=== PATIENT | female | born 1950 | race American Indian/Alaskan Native ===

== ENCOUNTER 2016-07-26 20:42 | Inpatient (IN) | payer OTHER ==
[2016-07-26 20:43] VITALS: BMI 27.8
[2016-07-26] MEDS ORDERED: Sodium Chloride 0.9% 1,000 ML IV ONE (21:21)
--- NOTE | 2016-07-26 21:24 | C.PDOC ---
History Of Present Illness Patient is a 66 year old female sent to the ER by Dr. Tapia for an evaluation. Patient reports she has felt lightheadedness and dizziness for the past 2 weeks and notes 1 syncopal episode. Denies nausea or vomiting. Time Seen by Provider: 07/26/16 21:20 Chief Complaint (Nursing): Dizziness/Lightheaded History Per: Patient History/Exam Limitations: no limitations Onset/Duration Of Symptoms: Hrs Current Symptoms Are (Timing): Still Present Number Of Syncopal Episodes: 1 Activity At Onset Of Symptoms: Other (Not known) Associated Symptoms Preceding Syncopal Episode: Lightheadedness, Other ( Dizziness) Fall Associated With With Symptoms: No Recent travel outside of the [place]: No - Symptoms Of CVA Associated Symptoms: denies: Impaired Speech, Seizure Activity, New Vision Deficit(Left), New Vision Deficit(Right), Decreased Ability To Walk, New Confusion Recent Aspirin Use: Unknown Current Coumadin Use?: Unknown Recent Head Trauma: No Past Medical History Reviewed: Historical Data, Nursing Documentation, Vital Signs Vital Signs: Last Vital Signs Temp 97.9 F 07/27/16 00:53 Pulse 61 07/27/16 00:53 Resp 20 07/27/16 00:53 BP 144/64 07/27/16 00:53 Pulse Ox 98 07/27/16 05:12 - Medical History PMH: HTN Other Surgeries: See [facility] Procedures - [facility] Procedures CATARAC PHACOEMULS/ASPIR (12/08/12) INSERT LENS AT CATAR EXT (12/08/12) Family History: States: Unknown Family Hx - Social History Hx Alcohol Use: No Hx Substance Use: No - Immunization History Hx Tetanus Toxoid Vaccination: No Hx Influenza Vaccination: No Hx Pneumococcal Vaccination: No Review Of Systems Gastrointestinal: Negative for: Nausea, Vomiting Neurological: Positive for: Dizziness, Other (Lightheadedness) Physical Exam - Physical Exam Appears: Well, Non-toxic, No Acute Distress, Other (Alert and conscious) Skin: Normal Color, Warm, Dry Head: Atraumatic, Normacephalic Eye(s): bilateral: Normal Inspection, EOMI Oral Mucosa: Moist Chest: Symmetrical, No Tenderness Cardiovascular: Rhythm Regular, No Murmur Respiratory: Normal Breath Sounds, No Rales, No Rhonchi, No Wheezing Gastrointestinal/Abdominal: Soft, No Tenderness Neurological/Psych: Oriented x3, Normal Speech, Normal Cognition ED Course And Treatment - Laboratory Results Result Diagrams: 07/26/16 21:47 07/26/16 21:47 ECG: Interpreted By Me, Viewed By Me ECG Rhythm: Sinus Rhythm ECG Interpretation: Normal Interpretation Of ECG: NSR, normal tracings. Rate From EC O2 Sat by Pulse Oximetry: 98 (room air) Pulse Ox Interpretation: Normal - CT Scan/US CT head w/o contrast Other Rad Studies (CT/US): Read By Radiologist, Radiology Report Reviewed CT/US Interpretation: IMPRESSION: No acute intracranial abnormality. Progress Note: Head CT w/o contrast, EKG and blood work ordered. Antivert PO and IV fluids administered. NIHSS Stroke Scale - Date/Time Evaluation Performed Date Performed: 07/26/16 Time Performed: 21:41 When Was NIHSS Performed: Baseline - How Severe is the Stoke Level of Consciousness: 0=Alert LOC to Questions: 0=Both comments correct LOC to commands: 0=Obeys both correctly Best Gaze: 0=Normal Visual: 0=No visual loss Facial: 0=Normal Motor Arm - Left: 0=No drift Motor Arm - Right: 0=No drift Motor Leg - Left: 0=No drift Motor Leg - Right: 0=No drift Limb Ataxia: 0=Absent Sensory: 0=Normal Best Language: 0=No aphasia Dysarthia: 0=Normal articulation Extinction & Inattention (Neglect): 0=Normal, no object Score: 0 Severity Of Stroke: 0= No Stroke Disposition Discussed With : Faisal Tapia Doctor Will See Patient In The: Hospital Counseled Patient/Family Regarding: Diagnosis - Disposition Disposition: HOSPITALIZED Disposition Time: 22:51 Condition: STABLE - POA Present On Arrival: None - Clinical Impression Clinical Impression: Dizziness, Near syncope, Renal insufficiency - Scribe Statement The provider has reviewed the documentation as recorded by the Scribjosefa Dillon All medical record entries made by the Scribe were at my direction and personally dictated by me. I have reviewed the chart and agree that the record accurately reflects my personal performance of the history, physical exam, medical decision making, and the department course for this patient. I have also personally directed, reviewed, and agree with the discharge instructions and disposition.
[2016-07-26] MEDS ORDERED: Sodium Chloride 0.9% 1,000 ML ONE (21:47)
[2016-07-26 22:01] LABS: BASO # 0.1 K/uL (0.0-0.2); BASO % 0.7 % (0.0-2.0); EOS # 0.1 K/uL (0.0-0.7); EOS % 0.9 % (0.0-4.0); LYMPH % 36.1 % (20.0-40.0); MEAN CELL VOLUME 92.5 fL (81.0-99.0); MEAN CORPUSCULAR HEMOGLOBIN 30.4 pg (27.0-31.0); MEAN CORPUSCULAR HGB CONC 32.9 g/dL (33.0-37.0); MEAN PLATELET VOLUME 10.4 fL (7.2-11.7); MONO # 0.6 K/uL (0.0-0.8); POTASSIUM 4.8 mmol/L (3.6-5.2); RED CELL DISTRIBUTION WIDTH 13.4 % (11.5-14.5); WHITE BLOOD COUNT 11.1 K/uL (4.8-10.8)
[2016-07-26 22:02] LABS: ALB/GLOB RATIO 1.2 (1.0-2.1); BILIRUBIN,TOTAL 0.9 mg/dL (0.2-1.3); TOTAL PROTEIN 8.7 g/dL (6.3-8.3)
[2016-07-26 22:03] LABS: CALCIUM 9.7 mg/dl (8.6-10.4)
[2016-07-27] MEDS ORDERED: (Novolog) Insulin Aspart, Recombinant 100 u/ml 10 ml vial SC SCH (10:00)
--- NOTE | 2016-07-27 11:08 | CT ---
PROCEDURE: CT HEAD WITHOUT CONTRAST. HISTORY: Headache COMPARISON: None available. TECHNIQUE: Axial computed tomography images were obtained through the head/brain without intravenous contrast. Radiation dose: Total exam DLP = 857.21 mGy-cm. This CT exam was performed using one or more of the following dose reduction techniques: Automated exposure control, adjustment of the mA and/or kV according to patient size, and/or use of iterative reconstruction technique. FINDINGS: HEMORRHAGE: No intracranial hemorrhage. BRAIN: No mass effect or edema. No atrophy or chronic microvascular ischemic changes. VENTRICLES: Unremarkable. No hydrocephalus. CALVARIUM: Unremarkable. PARANASAL SINUSES: Unremarkable as visualized. No significant inflammatory changes. MASTOID AIR CELLS: Unremarkable as visualized. No inflammatory changes. OTHER FINDINGS: None. IMPRESSION: No acute intracranial abnormalities. No significant findings to account for the clinical presentation. Concordant results (preliminary interpretation) provided by [facility]. Procedure Completed: 22:29. Preliminary ([facility]) Report: Dictated and Authenticated: 22:45. Final Interpretation: 11:07. July 27, 2016.
[2016-07-27] MEDS: (Novolog) Insulin Aspart, Recombinant 100 u/ml 10 ml vial SC SCH ×3 (13:16→22:01)
--- NOTE | 2016-07-27 18:06 | HP ---
The patient is a 66-year-old female with history of diabetes, hypertension and depression. The patie nt came to my office, complaining of dizziness and shortness of breath on exertion. Also, patient st ated that she has lost consciousness while a week ago, but the patient has claimed that she was in he r car, did not remember when she started her car, but she was found with her head leaning over the wh eel and the car was running. The patient at this time had refused to come to the [facility] the patient continued to have dizziness and the family has advised the patient to come to see me because of dizziness and patient was admitted. ALLERGIES: The patient has no known allergies. PAST MEDICAL HISTORY: As I mentioned, history of diabetes, hypertension, depression. SOCIAL HISTORY: The patient and are with no history of smoking or alcohol abuse. FAMILY HISTORY: No inherited disease. REVIEW OF SYSTEMS: RESPIRATORY: Shortness of breath on exertion. CARDIOVASCULAR: Denies any chest pain, however the patient has been having some palpitations at time s. GASTROINTESTINAL: No nausea, vomiting and no constipation. GENITOURINARY: No dysuria. NEUROLOGIC: The patient is awake. PHYSICAL EXAMINATION: GENERAL: The patient is alert, awake, oriented x 3, but with seems depressed. VITAL SIGNS: The blood pressure is 144/76, pulse 61, respirations 20, temperature 97.5. HEENT: Head normocephalic. NECK: Supple. No JVD. LUNGS: Clear. HEART: Regular rate and rhythm. Positive extrasystole. ABDOMEN: Soft and nontender. No palpable mass. EXTREMITIES: There is +1 pretibial edema. NEUROLOGIC: The patient has no ___ deficit. LABORATORY DATA: The patient had some blood tests done. WBC is 11.1, hemoglobin 12.5, hematocrit 38 and platelet is 206. Chemistry: Sodium 140, potassium ____, chloride 1.1, bicarbonate 26, BUN 31, creatinine 1.3, glucose 150, albumin is 4.8. The patient also had CT of the head. CT of the head showed no intracranial hemorrhage and no mass. IMPRESSION: So patient is admitted with syncope, diabetes, hypertension, peripheral neuropathy and de pression. The patient had a consult with Dr. Montoya cardiology for ____ and Dr. Montoya ____ e ndocrinologist. The case was reviewed and discussed with Danay GUILLORY, the nurse practitioner . . Faisal Tapia MD cc: [id number] TT: 07/27/2016 18:06:13 cecy
[2016-07-27 19:51] LABS: BASO % 0.5 % (0.0-2.0); EOS # 0.1 K/uL (0.0-0.7); EOS % 1.2 % (0.0-4.0); HEMATOCRIT 36.7 % (34.0-47.0); LYMPH # 3.7 K/uL (1.0-4.3); LYMPH % 49.9 % (20.0-40.0); MEAN CELL VOLUME 92.1 fL (81.0-99.0); MEAN CORPUSCULAR HGB CONC 33.7 g/dL (33.0-37.0); MEAN PLATELET VOLUME 9.6 fL (7.2-11.7); MONO # 0.4 K/uL (0.0-0.8); NRBC % 0.1 % (0.0-2.0); RED CELL DISTRIBUTION WIDTH 13.2 % (11.5-14.5); WHITE BLOOD COUNT 7.4 K/uL (4.8-10.8)
[2016-07-27 19:59] LABS: ALB/GLOB RATIO 1.5 (1.0-2.1); BILIRUBIN,TOTAL 0.5 mg/dL (0.2-1.3); CALCIUM 9.5 mg/dl (8.6-10.4); TOTAL PROTEIN 7.8 g/dL (6.3-8.3)
--- NOTE | 2016-07-27 20:17 | CON ---
DATE: 07/27/2016 REASON FOR CONSULTATION: Recurrent dizziness and near syncope. HISTORY OF PRESENT ILLNESS: The patient is a 66-year-old, [place] female originally from [facility] who has a history of hypertension and diabetes mellitus. The patient has a history of co ronary artery disease status post coronary stenting in [place] in 2004. The patient presented bec ause of recurrent dizziness and near fall. The last time the patient stated that she grabbed to her son's fina to protect herself from falling. The patient does not recall experiencing palpitations a nd denies any chest pain. One syncopal episode was reported to the primary physician, Dr. Tapia. However, the patient does not recall it. SOCIAL HISTORY: Nonsmoker, nondrinker. MEDICATIONS: Coreg 12.5 mg daily, Crestor 20 mg once a day, glipizide 5 mg daily, Lasix 20 mg p.o. o nce a day, Norvasc 5 mg once a day, Tylenol 1 tablet q. 6 hours p.r.n. REVIEW OF SYSTEMS: No nausea or vomiting. No fever or chills. No headache. PAST MEDICAL HISTORY: Hypertension, diabetes mellitus, chronic renal insufficiency, coronary artery disease status post coronary stenting in 2004. PHYSICAL EXAMINATION: GENERAL: The patient is a middle-aged female who does not appear to be in any distress. VITAL SIGNS: Blood pressure 130/64, heart rate 65, temperature 97.4, respirations 20. HEENT: Normocephalic. NECK: No JVD. CHEST: Clear. HEART: S1, S2 regular. EXTREMITIES: No edema, no calf tenderness. EKG reveals sinus rhythm at a rate of 75. LABORATORY DATA: SMA-7: Sodium 140, potassium 4.8, chloride 101, CO2 of 26, glucose 150, BUN 34, cr eatinine 1.3. CBC: WBC 11.1, hemoglobin 12.5, hematocrit 38, platelet count 206,000. Head CT scan without contrast revealed no acute intracranial abnormality. ASSESSMENT: 1. Recurrent dizziness and falls. 2. Coronary artery disease status post coronary intervention in 2004 according to the patient at [facility]. 3. Hypertension and diabetes mellitus. 4. Chronic renal insufficiency. RECOMMENDATIONS: Continue current Coreg at 12.5 mg daily, Crestor 20 mg once a day, Glucotrol 5 mg o nce a day, Norvasc 5 mg once a day, Lasix at 20 mg once a day. Start aspirin at 81 mg once a day. I will follow up the carotid Doppler results and the echocardiograph study that was performed today. Continue telemetry monitoring. Kaden Montoya MD cc: [id number] TT: 07/27/2016 20:16:17 Confirmation # [id number] Dictation # [id number] mn
[2016-07-27] MEDS: (Lantus) Insulin Glargine, Recombinant SC SCH (22:00)
--- NOTE | 2016-07-28 00:34 | CP.PCM.CON ---
History of Present Illness - History of Present Illness History of Present Illness: Patient is a 66 year old female sent to the ER by Dr. Tapia for an evaluation. 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 Patient reports she has felt lightheadedness and dizziness for the past 2 weeks and notes 1 syncopal episode. Denies nausea or vomiting. he stayed sleeping few hours in her car after an initial LOC, while sitting in her car. Chief Complaint (Nursing): Dizziness/Lightheaded Lightheadedness, Other (Dizziness) Fall Associated With With Symptoms: No Recent travel outside of the [place]: No Symptoms Of CVA Associated Symptoms: denies: Impaired Speech, Seizure Activity, New Vision Deficit(Left), New Vision Deficit(Right), Decreased Ability To Walk, New Confusion Recent Aspirin Use: Unknown Current Coumadin Use?: Unknown Recent Head Trauma: No Past Medical History Reviewed: Historical Data, Nursing Documentation, Vital Signs Vital Signs: Last Vital Signs Temp 97.9 F 07/27/16 00:53 Pulse 61 07/27/16 00:53 Resp 20 07/27/16 00:53 BP 144/64 07/27/16 00:53 Pulse Ox 98 07/27/16 05:12 - Medical History PMH: HTN, DM, Hyperlipemia Other Surgeries: See [facility] Procedures - [facility] Procedures CATARAR PHACOEMULS/ASPIR (12/08/12) INSERT LENS AT CATAR EXT (12/08/12) Family History: States: Unknown Family Hx - Social History Hx Alcohol Use: No Hx Substance Use: No - Immunization History Hx Tetanus Toxoid Vaccination: No Hx Influenza Vaccination: No Hx Pneumococcal Vaccination: No Review Of Systems Gastrointestinal: Negative for: Nausea, Vomiting Neurological: Positive for: Dizziness, Other (Lightheadedness) - Physical Exam Appears: Well, Non-toxic, No Acute Distress, Other (Alert and conscious) Skin: Normal Color, Warm, Dry Head: Atraumatic, Normacephalic Eye(s): bilateral: Normal Inspection, EOMI Oral Mucosa: Moist Chest: Symmetrical, No Tenderness Cardiovascular: Rhythm Regular, No Murmur Respiratory: Normal Breath Sounds, No Rales, No Rhonchi, No Wheezing Gastrointestinal/Abdominal: Soft, No Tenderness Neurological/Psych: Oriented x3, Normal Speech, Normal Cognition ED Course And Treatment ECG Rhythm: Sinus Rhythm ECG Interpretation: Normal Interpretation Of ECG: NSR, normal tracings. Rate From EC O2 Sat by Pulse Oximetry: 98 (room air) Pulse Ox Interpretation: Normal - CT Scan/US CT head w/o contrast Other Rad Studies (CT/US): Read By Radiologist, Radiology Report Reviewed CT/US Interpretation: IMPRESSION: No acute intracranial abnormality. Progress Note: Head CT w/o contrast, EKG and blood work ordered. Antivert PO and IV fluids administered. NIHSS Stroke Scale - Date/Time Evaluation Performed Date Performed: 07/26/16 Time Performed: 21:41 When Was NIHSS Performed: Baseline - How Severe is the Stoke Level of Consciousness: 0=Alert LOC to Questions: 0=Both comments correct LOC to commands: 0=Obeys both correctly Best Gaze: 0=Normal Visual: 0=No visual loss Facial: 0=Normal Motor Arm - Left: 0=No drift Motor Arm - Right: 0=No drift Motor Leg - Left: 0=No drift Motor Leg - Right: 0=No drift Limb Ataxia: 0=Absent Sensory: 0=Normal Best Language: 0=No aphasia Dysarthia: 0=Normal articulation Extinction & Inattention (Neglect): 0=Normal, no object Score: 0 Severity Of Stroke: 0= No Stroke - Disposition Disposition: HOSPITALIZED Disposition Time: 22:51 Condition: STABLE Symptoms Present On Arrival: None Clinical Impression: Dizziness, Near syncope, Renal insufficiency Past Patient History - Past Medical History & Family History Past Medical History?: Yes - Past Social History Smoking Status: Never Smoked - CARDIAC Hx Hypertension: Yes - PULMONARY Hx Respiratory Disorders: No - NEUROLOGICAL Hx Neurological Disorder: No Other/Comment: Near syncope episodes - HEENT Hx Cataracts: Yes (S2012) - RENAL Hx Chronic Kidney Disease: No - ENDOCRINE/METABOLIC Hx Diabetes Mellitus Type 1: Yes - HEMATOLOGICAL/ONCOLOGICAL Hx Blood Disorders: No - INTEGUMENTARY Hx Dermatological Problems: No - MUSCULOSKELETAL/RHEUMATOLOGICAL Hx Musculoskeletal Disorders: No Hx Falls: No - GASTROINTESTINAL Hx Gastrointestinal Disorders: No - GENITOURINARY/GYNECOLOGICAL Hx Genitourinary Disorders: No - PSYCHIATRIC Hx Substance Use: No - SURGICAL HISTORY Hx Surgeries: No - ANESTHESIA Hx Anesthesia: No Hx Anesthesia Reactions: No Hx Malignant Hyperthermia: No Meds Allergies/Adverse Reactions: Allergies Allergy/AdvReac Type Severity Reaction Status Date / Time No Known Allergies Allergy Verified 12/08/12 09:14 - Medications Medications: Current Medications Acetaminophen (Tylenol 325mg Tab) 650 mg PO Q6 PRN PRN Reason: Headache Amlodipine Besylate (Norvasc) 5 mg PO DAILY [facility] Last Admin: 07/27/16 09:43 Dose: 5 mg Aspirin (Aspirin Chewable) 81 mg PO DAILY [facility] Last Admin: 07/27/16 17:07 Dose: 81 mg Carvedilol (Coreg) 12.5 mg PO [facility] Last Admin: 07/27/16 21:59 Dose: 12.5 mg Furosemide (Lasix) 20 mg PO DAILY [facility] Last Admin: 07/27/16 09:43 Dose: 20 mg Glipizide (Glucotrol) 5 mg PO ACB [facility] Last Admin: 07/27/16 08:37 Dose: 5 mg Insulin Aspart (Novolog) 0 unit SC [facility] PRN Reason: Protocol Last Admin: 07/27/16 22:01 Dose: 2 unit Insulin Glargine (Lantus) 40 unit SC [facility] Last Admin: 07/27/16 22:00 Dose: 40 unit Rosuvastatin Calcium (Crestor) 20 mg PO [facility] Last Admin: 07/27/16 21:59 Dose: 20 mg Physical Exam - Neurological Exam Additional comments: Mental Status: Awake,alert, oriented X 3 Normal Memory X 3 Fluent coherent speech Cranial Nerves II to XII: No Nystagmus, no hearing deficits, no facial asymmetry Normal EOM movements Central Tongue, Normal Swallowing Motor: Normal Tone, Power, Muscle Bulk DTR 0/4 Toes are down going Sensory: Reduced peripherally Glove and stoke in both UEs and LEs Cerebellar: Normal FNT, unable to perform HST Unable to Tandem walk Stature and gait: Slow, wide base. Results - Vital Signs Recent Vital Signs: Last Vital Signs Temp 97.4 F L 07/27/16 15:35 Pulse 65 07/27/16 15:35 Resp 20 07/27/16 15:35 BP 159/65 H 07/27/16 21:59 Pulse Ox 97 07/27/16 15:35 - Labs Result Diagrams: 07/29/16 08:11 07/29/16 08:11 Labs: Laboratory Results - last 24 hr 07/27/16 07/27/16 07/27/16 16:45 19:45 19:45 WBC 7.4 RBC 3.99 Hgb 12.4 Hct 36.7 MCV 92.1 MCH 31.0 MCHC 33.7 RDW 13.2 Plt Count 225 MPV 9.6 Neut % (Auto) 43.4 L Lymph % (Auto) 49.9 H [place] % (Auto) 5.0 Eos % (Auto) 1.2 Baso % (Auto) 0.5 Neut # 3.2 Lymph # 3.7 [place] # 0.4 Eos # 0.1 Baso # 0.0 Sodium 141 Potassium 4.0 Chloride 101 Carbon Dioxide 28 Anion Gap 16 BUN 25 H Creatinine 1.2 Est GFR ( Amer) 55 Est GFR (Non-Af Amer) 45 POC Glucose (mg/dL) 287 H Random Glucose 220 H Calcium 9.5 Total Bilirubin 0.5 AST 23 ALT 26 Alkaline Phosphatase 112 Total Protein 7.8 Albumin 4.7 Globulin 3.1 Albumin/Globulin Ratio 1.5 07/27/16 21:16 WBC RBC Hgb Hct MCV MCH MCHC RDW Plt Count MPV Neut % (Auto) Lymph % (Auto) [place] % (Auto) Eos % (Auto) Baso % (Auto) Neut # Lymph # [place] # Eos # Baso # Sodium Potassium Chloride Carbon Dioxide Anion Gap BUN Creatinine Est GFR ( Amer) Est GFR (Non-Af Amer) POC Glucose (mg/dL) 302 H Random Glucose Calcium Total Bilirubin AST ALT Alkaline Phosphatase Total Protein Albumin Globulin Albumin/Globulin Ratio Assessment & Plan (1) Dizziness Assessment and Plan: Vertigo might be related to BPPV, call PT for [facility]. It might be also due to to a seizure, get EEG. It can be as a cause of a Cerebrovascular insufficiency due to shortage in the Posterior circulation of the Brain or of the anterior Circulation of the Brain. Status: Acute (2) Near syncope Assessment and Plan: Cardiac causes and Seizures are to be ruled out Status: Acute (3) Renal insufficiency Status: Acute (4) Seizures Assessment and Plan: Seizures are to be ruled out. Status: Acute (5) CVA (cerebral vascular accident) Assessment and Plan: It is to be ruled out. Status: Acute
[2016-07-28] MEDS: (Novolog) Insulin Aspart, Recombinant 100 u/ml 10 ml vial SC SCH ×5 (07:30→21:39)
--- NOTE | 2016-07-28 15:08 | PN ---
DATE: 07/28/2016 Today, patient is alert and awake, but somewhat anxious and worried about having blood pressure high and scared about having her surgery. The patient claims that she feels that she worries about if she has surgery, which was not in the plan, but the patient denies however any chest pain, denies any palpitations and shortness of breath. The patient is just anxious. PHYSICAL EXAMINATION: VITAL SIGNS: The patient has a blood pressure now of /72, pulse is , respirations 20, temp erature 98.2. NECK: Supple. No JVD. LUNGS: Clear. HEART: Regular rate and rhythm, positive murmur. ABDOMEN: Soft and nontender. No palpable mass. EXTREMITIES: No edema. PSYCHIATRIC: The patient is, as mentioned, anxious. LABORATORY DATA: Shows that WBC was 7.4 yesterday, 12.4 hemoglobin and 36.7 hematocrit and platelet was 255. The patient has refused blood work today. The neuro consult was appreciated. MRI of the brain is ordered by Dr. Hogan, but also we are going t o order an EEG, rule out seizure disorder since the patient looked like having a postictal state pict ure and so we are going to this patient, but also we are going to add Zoloft on the patient at just 25 mg daily. Faisal Tapia MD cc: [id number] TT: 07/28/2016 15:07:46 Confirmation # [id number] Dictation # [id number]
--- NOTE | 2016-07-28 18:36 | PN ---
DATE: 07/28/2016 SUBJECTIVE: The patient is still experiencing dizziness and she denies any syncope. PHYSICAL EXAMINATION: VITAL SIGNS: Blood pressure 139/57, heart rate 77, temperature 98.5, respirations 20. HEENT: Normocephalic. NECK: No JVD. CHEST: Clear. HEART: S1, S2 regular. EXTREMITIES: No edema. DIAGNOSTIC DATA: Echocardiograph study was reviewed and revealed normal ejection fraction with mild pulmonary hypertension. Preliminary report of carotid Doppler is mild bilateral disease. ASSESSMENT: 1. Recurrent dizziness and near syncope. 2. History of coronary artery disease, status post percutaneous coronary intervention in 2004 in [facility]. 3. Hypertension and diabetes mellitus. 4. Chronic renal insufficiency. RECOMMENDATIONS: Continue aspirin 81 mg once a day, Coreg 12.5 mg once a day, Crestor 20 mg once a d ay, glipizide 5 mg once a day, Lasix 20 mg p.o. once a day, Norvasc 5 mg once a day. Consider brain MRI as well as neck MRA. Kaden Montoya MD cc: [id number] TT: 07/28/2016 18:35:22 Confirmation # [id number] Dictation # [id number] mn
[2016-07-28] MEDS: (Lantus) Insulin Glargine, Recombinant SC SCH (21:51)
[2016-07-29] MEDS: (Novolog) Insulin Aspart, Recombinant 100 u/ml 10 ml vial SC SCH ×4 (08:19→21:41)
[2016-07-29 08:23] LABS: BASO % 0.7 % (0.0-2.0); EOS # 0.1 K/uL (0.0-0.7); HEMATOCRIT 35.4 % (34.0-47.0); LYMPH # 2.2 K/uL (1.0-4.3); LYMPH % 43.4 % (20.0-40.0); MEAN CORPUSCULAR HEMOGLOBIN 31.1 pg (27.0-31.0); MEAN CORPUSCULAR HGB CONC 33.8 g/dL (33.0-37.0); MONO # 0.5 K/uL (0.0-0.8); MONO % 9.2 % (0.0-10.0)
[2016-07-29 08:30] LABS: CHLORIDE 103 mmol/L (98-107); SODIUM 140 mmol/L (132-148)
[2016-07-29 08:31] LABS: POTASSIUM 4.1 mmol/L (3.6-5.2)
[2016-07-29 08:33] LABS: CARBON DIOXIDE 26 mmol/L (22-30); CHOLESTEROL 234 mg/dL (0-199); GFR AFRICAN-AMERICAN > 60
[2016-07-29 08:34] LABS: BLOOD UREA NITROGEN 21 mg/dL (7-17); CALCIUM 9.2 mg/dl (8.6-10.4); GLUCOSE,RANDOM 162 mg/dL (65-105)
[2016-07-29 09:05] LABS: THYROID STIMULATING HORMONE 1.02 mIU/L (0.46-4.68)
--- NOTE | 2016-07-29 12:40 | CARD ---
APPROVED REPORT EXAM: Two-dimensional and M-mode echocardiogram with Doppler and color Doppler. Other Information Quality : GoodRhythm : NSR INDICATION Dizziness and Vertigo Syncope M-Mode DIMENSIONS RVDd1.25 (2.1-3.2cm)Left Atrium (MM)4.16 (2.5-4.0cm) IVSd1.15 (0.7-1.1cm)Aortic Root2.71 (2.2-3.7cm) LVDd3.95 (4.0-5.6cm)Aortic Cusp Exc.1.35 (1.5-2.0cm) PWd1.06 (0.7-1.1cm)FS (%) 45 % LVDs2.19 (2.0-3.8cm)LVEF (%)76 (>50%) Mitral Valve MV E Zzyhrffm68.6cm/sMV A Vvecmgip380.0cm/sE/A ratio0.7 TDI E/Lateral E'0.0E/Medial E'0.0 Tricuspid Valve TR Peak Upnllzjj290xw/sTR Peak Gr.[id number] LEFT VENTRICLE The left ventricle is normal size. There is normal left ventricular wall thickness. The left ventricular function is normal. The left ventricular ejection fraction is within the normal range. There is normal LV segmental wall motion. Tissue Doppler imaging reveals mild left ventricular diastolic dysfunction. No left ventricle thrombus noted on this study. There is no ventricular septal defect visualized. There is no left ventricular aneurysm. There is no mass noted in the left ventricle. RIGHT VENTRICLE The right ventricle is normal size. There is normal right ventricular wall thickness. The right ventricular systolic function is normal. ATRIA The left atrium is mildly dilated. The right atrium is mildly dilated. The interatrial septum is intact with no evidence for an atrial septal defect. AORTIC VALVE The aortic valve is normal in structure. No aortic regurgitation is present. There is no aortic valvular stenosis. MITRAL VALVE The mitral valve is normal in structure. There is no mitral valve stenosis. There is no mitral valve regurgitation noted. TRICUSPID VALVE The tricuspid valve is normal in structure. There is trace tricuspid regurgitation. PULMONIC VALVE The pulmonary valve is normal in structure. There is no pulmonic valvular regurgitation. GREAT VESSELS The aortic root is normal in size. The ascending aorta is normal in size. The pulmonary artery is normal. The IVC is normal in size and collapses >50% with inspiration. PERICARDIAL EFFUSION There is no pericardial effusion. <Conclusion> Tissue Doppler imaging reveals mild left ventricular diastolic dysfunction. The left atrium is mildly dilated. The right atrium is mildly dilated. LV EF IS 70%.
--- NOTE | 2016-07-29 15:50 | PN ---
DATE: 07/29/2016 SUBJECTIVE: Today, the patient is more pleasant, alert and awake, and much less anxious and denied a ny shortness of breath or chest pain or palpitation. PHYSICAL EXAMINATION: VITAL SIGNS: The patient has a blood pressure of 134/54, pulse 63, respirations 20, temperature 98.3 . HEENT: Head is normocephalic. NECK: Supple. No JVD. LUNGS: Clear. HEART: Regular rate and rhythm. ABDOMEN: Soft. EXTREMITIES: There is no edema. NEUROLOGIC: The patient is alert, awake, and no episode of seizure or syncope. LABORATORY DATA: The patient has labs. Sodium 140, potassium 4.1, chloride 103, bicarb 26, BUN 21, creatinine 1.1, glucose 162, uric acid 6, calcium 9.2, and cholesterol 234, LDL 126, and eGFR is 7. TSH 1.02. PLAN: So, the plan is that we are going to continue the current medications. MRI is pending. EEG i s still pending So, that should be all be done tomorrow, including echocardiogram done, has re vealed normal ejection fraction with mild pulmonary hypertension. Faisal Tapia MD cc: [id number] TT: 07/29/2016 15:49:42 Confirmation # [id number] Dictation # [id number] dn
--- NOTE | 2016-07-29 18:24 | PN ---
DATE: 07/29/2016 The patient is still experiencing dizziness, but no syncope or fall. No reported ventricular arrhyth heladio. PHYSICAL EXAMINATION: VITAL SIGNS: Blood pressure 175/63, heart rate 73, temperature 98.2, respirations 18. HEENT: Normocephalic. NECK: No JVD. CHEST: Clear. HEART: S1, S2 regular. ABDOMEN: Soft. EXTREMITIES: No edema. LABORATORIES: Today's blood sugar is 270 and 197. Today's chemistry is within normal limits, except for BUN of 21 and glucose of 162, total cholesterol 234, LDL cholesterol 136, both are elevated. TS H has been within normal limits. ASSESSMENT: 1. Recurrent dizziness and 1 episode of syncope. 2. Hyperlipidemia. 3. Diabetes mellitus. 4. Mild bilateral artery disease. 5. Improved renal insufficiency. RECOMMENDATIONS: Continue aspirin 81 mg once a day, Coreg 12.5 mg once a day, Crestor to 40 mg once a day. Continue Norvasc 5 mg once a day. Consider neck MRA. Kaden Montoya MD cc: [id number] TT: 07/29/2016 18:23:55 Confirmation # [id number] Dictation # [id number] mn
[2016-07-29] MEDS: (Lantus) Insulin Glargine, Recombinant SC SCH (21:33)
--- NOTE | 2016-07-30 00:56 | CP.PCM.PN ---
Subjective - Date & Time of Evaluation Date of Evaluation: 07/29/16 Time of Evaluation: 19:40 - Subjective Subjective: Patient is still refusing to have her Blood drawn for testing. This opposition occurs from time to time. She is not suffering from new syncopal spells and will have her EEG, MRI Brain and Echo on 07/30/2016. Lab work is seen. CRP is not available, RPR is non reactive, serum Glucose is high from 200 to 320, serum lipid profile is high. Objective - Vital Signs/Intake and Output Vital Signs (last 24 hours): Temp Pulse Resp BP Pulse Ox 98.2 F 73 18 168/61 H 99 07/29/16 15:41 07/29/16 15:41 07/29/16 15:41 07/29/16 21:32 07/29/16 15:41 - Medications Medications: Current Medications Acetaminophen (Tylenol 325mg Tab) 650 mg PO Q6 PRN PRN Reason: Headache Last Admin: 07/29/16 02:42 Dose: 650 mg Amlodipine Besylate (Norvasc) 5 mg PO DAILY [facility] Last Admin: 07/29/16 10:06 Dose: 5 mg Aspirin (Aspirin Chewable) 81 mg PO DAILY [facility] Last Admin: 07/29/16 10:05 Dose: 81 mg Carvedilol (Coreg) 12.5 mg PO HS [facility] Last Admin: 07/29/16 21:32 Dose: 12.5 mg Furosemide (Lasix) 20 mg PO DAILY [facility] Last Admin: 07/29/16 10:05 Dose: 20 mg Glipizide (Glucotrol) 5 mg PO ACB [facility] Last Admin: 07/29/16 08:19 Dose: 5 mg Insulin Aspart (Novolog) 0 unit SC ACHS [facility] PRN Reason: Protocol Last Admin: 07/29/16 21:41 Dose: 2 unit Insulin Glargine (Lantus) 40 unit SC HS [facility] Last Admin: 07/29/16 21:33 Dose: 40 unit Rosuvastatin Calcium (Crestor) 40 mg PO HS [facility] Last Admin: 07/29/16 21:32 Dose: 40 mg Sertraline HCl (Zoloft) 25 mg PO DAILY [facility] Last Admin: 07/29/16 10:05 Dose: 25 mg - Labs Labs: 07/29/16 08:11 07/29/16 08:11 Assessment and Plan (1) Dizziness Status: Acute (2) Near syncope Status: Acute (3) Renal insufficiency Status: Acute (4) Seizures Status: Acute (5) Seizures Status: Acute
[2016-07-30] MEDS: (Novolog) Insulin Aspart, Recombinant 100 u/ml 10 ml vial SC SCH ×4 (08:16→22:06)
--- NOTE | 2016-07-30 10:20 | VASCLAB ---
PROCEDURE: HISTORY: Near Syncope COMPARISON: None available. TECHNIQUE: Grayscale and duplex Doppler evaluation of the cervical carotid and vertebral arteries were performed. The common carotid, carotid bifurcations and cervical Internal Carotid Artery (ICA) and proximal External Carotid Artery (ECA) were evaluated. The vertebral arteries were evaluated for gross patency and flow direction. Report prepared by Rahul Tavarez, BS, RVT FINDINGS: RIGHT CAROTID ARTERIES: 1. Common Carotid Artery: No significant focal plaque formation of the right common carotid artery. Maximum Peak Systolic velocity: 99 cm/sec: End-diastolic velocity 13 cm/sec. 2. Carotid Bifurcation: Calcific plaque formation. Maximum Peak Systolic velocity: 129 cm/sec: End-diastolic velocity 18 cm/sec. 3. Internal Carotid Artery: Plaque description: 3.1. Proximal Segment: Peak systolic velocity 120 cm/sec: End-diastolic velocity 29 cm/sec - % stenosis 0-15% 3.2. Middle Segment: Peak systolic velocity 152 cm/sec: End-diastolic velocity 25 cm/sec - % stenosis 16-49% 3.3. Distal Segment: Peak systolic velocity 129 cm/sec: End-diastolic velocity 34 cm/sec - % stenosis 0-15% 4. External Carotid Artery: No significant focal plaque formation. Peak systolic velocity 387 cm/sec 5. ICA/CCA Ratio: 1.5 LEFT CAROTID ARTERIES: 1. Common Carotid Artery: No significant focal plaque formation of the left common carotid artery. Maximum Peak Systolic velocity: 100 cm/sec: End-diastolic velocity 11 cm/sec. 2. Carotid Bifurcation: Calcific plaque formation. Maximum Peak Systolic velocity: 105 cm/sec: End-diastolic velocity 13 cm/sec. 3. Internal Carotid Artery: Plaque description: 3.1. Proximal Segment: Peak systolic velocity 106 cm/sec: End-diastolic velocity 25 cm/sec - % stenosis 0-15% 3.2. Middle Segment: Peak systolic velocity 103 cm/sec: End-diastolic velocity 29 cm/sec - % stenosis 0-15% 3.3. Distal Segment: Peak systolic velocity 100 cm/sec: End-diastolic velocity 21 cm/sec - % stenosis 0-15% 4. External Carotid Artery: No significant focal plaque formation. Peak systolic velocity 306 cm/sec 5. ICA/CCA Ratio: 1.1 VERTEBRAL ARTERIES: 1. Right Vertebral Artery: The right vertebral artery flow direction is antegrade. 2. Left Vertebral Artery: The left vertebral artery flow direction is antegrade. OTHER FINDINGS: 1. Right Brachial Blood pressure: 176 mmHg. 2. Left Brachial Blood pressure: mmHg. IMPRESSION: RIGHT: 16-49% stenosis of the right mid ICA with minimal hemodynamic significance. LEFT: Duplex scan does not suggest hemodynamically significant stenosis of the left extracranial carotid arteries.
--- NOTE | 2016-07-30 12:50 | CARD ---
APPROVED REPORT EKG Measurement Heart [id number] <Conclusion> Normal sinus rhythm Normal ECG
--- NOTE | 2016-07-30 17:18 | PN ---
DATE: 07/30/2016 The patient denies any dizziness today or headache. PHYSICAL EXAMINATION: VITAL SIGNS: Blood pressure 183/67, heart rate 67, temperature 97.9, respiration 18. HEENT: Normocephalic. NECK: No JVD. CHEST: Clear. HEART: S1, S2 regular. ABDOMEN: Soft. EXTREMITIES: No edema. LABORATORIES: Today's blood sugars are 193 and 339. I did review neurology consultation followup and the impression is dizziness, near syncope, renal ins ufficiency, seizures, seizures again and finally CVA, status acute. There is no plan written to the assessment that was mentioned earlier. ASSESSMENT: 1. Recurrent dizziness and 1 episode of syncope. 2. Uncontrolled diabetes mellitus. 3. Hypertension. 4. Hyperlipidemia. 5. Mild bilateral carotid artery disease. 6. Improved renal insufficiency. RECOMMENDATIONS: Continue aspirin 81 mg once a day, Coreg at 12.5 mg daily, Glipizide 5 mg once a da y, Crestor 40 mg once a day, Lasix 20 mg p.o. once a day, Norvasc at 5 mg once a day. Consider neck MRA. Kaden Montoya MD cc: [id number] TT: 07/30/2016 17:17:55 Confirmation # [id number] Dictation # [id number] en
[2016-07-30] MEDS: (Lantus) Insulin Glargine, Recombinant SC SCH (21:28)
[2016-07-30] MEDS: Docusate-Senna 50 mg-8.6 mg Tab PO SCH ×3 (22:49→23:33)
--- NOTE | 2016-07-30 23:21 | CP.PCM.PN ---
Subjective - Date & Time of Evaluation Date of Evaluation: 07/30/16 Time of Evaluation: 21:40 - Subjective Subjective: Cardiology consult F/U is appreciated. Patient blood glucose is still hectic and reaching 339 down to 190.. She has no further syncopal spells. She feels good. EEG is negative. MRI Brain is not performed yet. Carotid Doppler is showing mild changes. Objective - Vital Signs/Intake and Output Vital Signs (last 24 hours): Temp Pulse Resp BP Pulse Ox 97.9 F 67 18 184/79 H 97 07/30/16 15:28 07/30/16 15:28 07/30/16 15:28 07/30/16 21:34 07/30/16 15:28 - Medications Medications: Current Medications Acetaminophen (Tylenol 325mg Tab) 650 mg PO Q6 PRN PRN Reason: Headache Last Admin: 07/29/16 02:42 Dose: 650 mg Amlodipine Besylate (Norvasc) 10 mg PO DAILY [facility] Aspirin (Aspirin Chewable) 81 mg PO DAILY [facility] Last Admin: 07/30/16 09:50 Dose: 81 mg Carvedilol (Coreg) 25 mg PO BID [facility] Furosemide (Lasix) 20 mg PO DAILY [facility] Last Admin: 07/30/16 09:51 Dose: 20 mg Glipizide (Glucotrol) 5 mg PO ACB [facility] Last Admin: 07/30/16 08:16 Dose: 5 mg Insulin Aspart (Novolog) 0 unit SC ACHS [facility] PRN Reason: Protocol Last Admin: 07/30/16 22:06 Dose: Not Given Insulin Glargine (Lantus) 40 unit SC [facility] Last Admin: 07/30/16 21:28 Dose: 40 unit Meclizine HCl (Antivert) 25 mg PO TID [facility] Rosuvastatin Calcium (Crestor) 40 mg PO HS [facility] Last Admin: 07/30/16 21:34 Dose: 40 mg Senna/Docusate Sodium (Senokot S 50 Mg-8.6 Mg) 1 tab PO BID [facility] Last Admin: 07/30/16 22:49 Dose: Not Given Sertraline HCl (Zoloft) 25 mg PO DAILY [facility] Last Admin: 07/30/16 09:57 Dose: 25 mg - Labs Labs: 07/29/16 08:11 07/29/16 08:11 Assessment and Plan (1) Dizziness Status: Acute (2) Near syncope Status: Acute (3) Renal insufficiency Status: Acute (4) Seizures Status: Acute (5) Seizures Status: Acute
--- NOTE | 2016-07-31 07:42 | PN ---
DATE: 07/30/2016 SUBJECTIVE: The patient today is alert and awake, but they are complaining of dizziness and feeling that they are going to fall as soon as she stands. The patient has denied any chest pain today. No syncope. Also, the patient has complained of constipation. PHYSICAL EXAMINATION: VITAL SIGNS: The patient has a blood pressure of 184/67. At 21 hours, it was 184/79. Pulse is 64, respirations 18, temperature 97.9. NECK: Supple and no JVD. LUNGS: Clear. HEART: Regular rate and rhythm. ABDOMEN: Soft. EXTREMITIES: Nontender. NEUROLGOIC: The patient has dizziness and unsteady gait. LABORATORY DATA: The patient has refused blood work done past two days, so, the patient had to day a EEG, but the MRA is also pending. PLAN: As mentioned also, the patient has an echocardiogram. dysfunction and the p atient has to now and make some changes of the blood pressure medications. carvedilol will be given 25 mg twice a day. The Norvasc will be 10 mg instead of 5 mg daily. today and also will add the Antivert 25 mg twice a day. The patient will have an MRI done and, also, I will do her bloo d test. Faisal Tapia MD cc: [id number] TT: 07/30/2016 22:59:00 Confirmation # [id number] Dictation # [id number] dc 07/31/2016 06:41:11
--- NOTE | 2016-07-31 08:06 | EEG ---
DATE: 07/27/2016 The record is obtained for a history of rule out seizures. The record was symmetrically equal on both sides with velocity of 8-9 cycles per second. The waves a re fairly formed, fairly organized with a posterior distribution, moderate in amplitude, reactive to eye opening by attenuation. There are no abnormal discharges. No spikes, no polyspikes, no sharp wa ve, no focal slowing, no paroxysmal discharge. The record did not show any changes with photic stimu lation. The hyperventilation was omitted. There were no periods of sleep. There were periods of dr owsiness that were seen briefly during which attenuation and slowing of the record were seen and thet a waves were seen and eye movement artifacts. There were eye movement artifacts, muscle movement art ifacts and electrode artifacts. The photic stimulation was performed and did not produce any changes . Hyperventilation was omitted. IN SUMMARY: This is a normal awake and drowsy electroencephalogram. Clinical correlation is recomme nded. Paul Hogan MD cc: [id number] TT: 07/31/2016 08:05:47 Confirmation # [id number] Dictation # [id number] beny
[2016-07-31] MEDS: (Novolog) Insulin Aspart, Recombinant 100 u/ml 10 ml vial SC SCH ×4 (08:13→22:05)
[2016-07-31 08:48] LABS: BASO % 0.5 % (0.0-2.0); EOS # 0.1 K/uL (0.0-0.7); EOS % 1.5 % (0.0-4.0); HEMATOCRIT 35.9 % (34.0-47.0); LYMPH # 2.5 K/uL (1.0-4.3); MEAN CELL VOLUME 92.8 fL (81.0-99.0); MEAN CORPUSCULAR HEMOGLOBIN 31.6 pg (27.0-31.0); MEAN CORPUSCULAR HGB CONC 34.1 g/dL (33.0-37.0); MEAN PLATELET VOLUME 9.4 fL (7.2-11.7); MONO # 0.4 K/uL (0.0-0.8); MONO % 7.7 % (0.0-10.0); NRBC % 0.1 % (0.0-2.0); RED CELL DISTRIBUTION WIDTH 12.9 % (11.5-14.5); WHITE BLOOD COUNT 5.8 K/uL (4.8-10.8)
[2016-07-31 08:58] LABS: POTASSIUM 4.4 mmol/L (3.6-5.2)
[2016-07-31 09:01] LABS: ALB/GLOB RATIO 1.3 (1.0-2.1); BILIRUBIN,TOTAL 0.6 mg/dL (0.2-1.3); CALCIUM 9.3 mg/dl (8.6-10.4); TOTAL PROTEIN 7.3 g/dL (6.3-8.3)
[2016-07-31] MEDS: Docusate-Senna 50 mg-8.6 mg Tab PO SCH ×2 (12:09→17:12)
[2016-07-31 15:30] LABS: 18 KD (IGG) BAND Nonreactive; 23 KD (IGG) BAND Nonreactive; 23 KD (IGM) BAND Nonreactive; 28 KD (IGG) BAND Nonreactive; 30 KD (IGG) BAND Nonreactive; 39 KD (IGG) BAND Nonreactive; 39 KD (IGM) BAND Nonreactive; 41 KD (IGG) BAND Reactive; 41 KD (IGM) BAND Nonreactive; 45 KD (IGG) BAND Nonreactive; 58 KD (IGG) BAND Nonreactive; 66 KD (IGG) BAND Nonreactive; 93 KD (IGG) BAND Nonreactive; LYME DISEASE INTERP (IGG) Negative (Negative)
--- NOTE | 2016-07-31 15:41 | MRI ---
PROCEDURE: MRI BRAIN WITHOUT CONTRAST HISTORY: R/O CVA, R/O Seizures COMPARISON: Comparison is made to the previous CT dated 07/26/2016 TECHNIQUE: Multiplanar, multisequence MR images of the brain were obtained without intravenous contrast enhancement. FINDINGS: HEMORRHAGE: None DWI: No evidence of an acute or early subacute infarction. BRAIN PARENCHYMA: There is focal encephalomalacia at the right cerebellum measures 1.5 x 0.8 centimeter. There is adjacent sub centimeter encephalomalacia also in the right occipital lobe. There are 2 small foci of encephalomalacia at the right parietal lobe/posterior kessler radiata likely represent old lacunar infarcts. No atrophy or chronic microvascular ischemic changes. VENTRICLES: Unremarkable. No hydrocephalus. CRANIUM: Unremarkable. ORBITS: Grossly unremarkable. PARANASAL SINUSES/MASTOIDS: Clear VASCULAR SYSTEM: Skull base flow voids intact. OTHER FINDINGS: None. IMPRESSION: No evidence of acute or subacute infarct. No evidence of acute pathology in the brain. Small foci of encephalomalacia at the right parietal and right cerebellum suggestive of old lacunar infarcts. Largest focus seen at the right cerebellum.
--- NOTE | 2016-07-31 17:12 | PN ---
DATE: 07/31/2016 SUBJECTIVE: The patient is experiencing dizziness. No reported ventricular arrhythmia. PHYSICAL EXAMINATION: VITAL SIGNS: Blood pressure 125/63, heart rate 63, temperature 98.2, respirations 18. HEENT: Normocephalic. CHEST: Clear. HEART: S1, S2 regular. EXTREMITIES: No edema. LABORATORIES: Hemoglobin and hematocrit, white count and platelet count are within normal limits. R heumatoid panel as well as DIAZ titers are negative. Today's BUN and creatinine are 23 and 1.2, gluco se is 158. Brain MRI: No evidence of acute or subacute infarct. No evidence of acute pathology, sm all foci of encephalomalacia in the right parietal and right cerebellum suggestive of old coronary in farct. The largest focus seen at the right cerebellum. ASSESSMENT: 1. Dizziness. 2. Uncontrolled diabetes mellitus. 3. Hypertension. 4. Mild bilateral carotid artery disease. 5. Coronary artery disease status post coronary artery stenting in the past. RECOMMENDATIONS: Continue Norvasc 10 mg once a day, Lasix 20 mg orally once a day, Crestor at 40 mg once a day, Coreg at 25 mg twice a day. Kaden Montoya MD cc: [id number] TT: 07/31/2016 17:12:42 Confirmation # [id number] Dictation # [id number] mn
[2016-07-31] MEDS: (Lantus) Insulin Glargine, Recombinant SC SCH (22:05)
--- NOTE | 2016-08-01 00:59 | CP.PCM.PN ---
Subjective - Date & Time of Evaluation Date of Evaluation: 07/31/16 Time of Evaluation: 21:00 - Subjective Subjective: Patient had a negative EEG IMPRESSION of MRI Brain: No evidence of acute or subacute infarct. No evidence of acute pathology in the brain. Small foci of encephalomalacia at the right parietal and right cerebellum suggestive of old lacunar infarcts. Largest focus seen at the right cerebellum. Patient Cardiac studies are in Progress. Due to the Encephalomalacia seen on MRI Brain, we will start her Empirically on Medicine for Seizures, as seizures may not be seen on EEG Studies. Objective - Vital Signs/Intake and Output Vital Signs (last 24 hours): Temp Pulse Resp BP Pulse Ox 98.2 F 56 L 18 125/63 99 07/31/16 15:29 08/01/16 00:00 07/31/16 15:29 07/31/16 17:12 07/31/16 15:29 - Medications Medications: Current Medications Acetaminophen (Tylenol 325mg Tab) 650 mg PO Q6 PRN PRN Reason: Headache Last Admin: 07/29/16 02:42 Dose: 650 mg Amlodipine Besylate (Norvasc) 10 mg PO DAILY [facility] Last Admin: 07/31/16 12:09 Dose: 10 mg Aspirin (Aspirin Chewable) 81 mg PO DAILY [facility] Last Admin: 07/31/16 12:14 Dose: 81 mg Carvedilol (Coreg) 25 mg PO BID [facility] Last Admin: 07/31/16 17:12 Dose: 25 mg Furosemide (Lasix) 20 mg PO DAILY [facility] Last Admin: 07/31/16 12:04 Dose: 20 mg Glipizide (Glucotrol) 5 mg PO ACB [facility] Last Admin: 07/31/16 08:13 Dose: 5 mg Insulin Aspart (Novolog) 0 unit SC [facility] PRN Reason: Protocol Last Admin: 07/31/16 22:05 Dose: Not Given Insulin Glargine (Lantus) 40 unit SC [facility] Last Admin: 07/31/16 22:05 Dose: 40 unit Meclizine HCl (Antivert) 25 mg PO TID [facility] Last Admin: 07/31/16 17:11 Dose: 25 mg Rosuvastatin Calcium (Crestor) 40 mg PO [facility] Last Admin: 07/31/16 22:04 Dose: 40 mg Senna/Docusate Sodium (Senokot S 50 Mg-8.6 Mg) 1 tab PO BID [facility] Last Admin: 07/31/16 17:12 Dose: 1 tab Sertraline HCl (Zoloft) 25 mg PO DAILY [facility] Last Admin: 07/31/16 12:14 Dose: 25 mg - Labs Labs: 07/31/16 08:37 07/31/16 08:37 Assessment and Plan (1) Dizziness Status: Acute (2) Near syncope Status: Acute (3) Renal insufficiency Status: Acute (4) Seizures Status: Acute (5) Seizures Status: Acute
--- NOTE | 2016-08-01 07:40 | PN ---
DATE: 07/31/2016 Today the patient is alert and awake, more pleasant. Denied any shortness of breath or chest pain bu t, however, the patient is complaining of dizziness and the patient when standing felt dizzy. OBJECTIVE: VITAL SIGNS: The patient has a blood pressure now that is 125/63, pulse 63, respirations 8, temperat ure 98.2. HEAD: is normocephalic. NECK: Supple. No JVD. LUNGS: Clear. HEART: Regular rate and rhythm. There is no murmur. ABDOMEN: Soft and nontender. No palpable mass. EXTREMITIES: There is no edema. NEUROLOGIC: There is unsteady gait. The patient had an MRI of the brain done that revealed there is a focal encephalomalacia at the righ t cerebellum measuring 1.5 to 0.38 cm and there is adjacent subcentimeter encephalomalacia also in th e right occipital lobe and there are 2 small foci of encephalomalacia at the right parietal lobe post erior kessler radiata, presenting old lacunar infarct. So, in that case, will continue to give the patient aspirin and Plavix and also the patient will have physical therapy. Will order also physical therapy for the patient. Faisal Tapia MD cc: [id number] TT: 07/31/2016 19:40:20 Confirmation # [id number] Dictation # [id number] mary
[2016-08-01] MEDS: (Novolog) Insulin Aspart, Recombinant 100 u/ml 10 ml vial SC SCH ×3 (08:29→18:18)
[2016-08-01] MEDS: Docusate-Senna 50 mg-8.6 mg Tab PO SCH ×2 (10:00→18:19)
--- NOTE | 2016-08-01 14:19 | PN ---
DATE: 08/01/2016 The patient is still experiencing dizziness. She denies any palpitations. No reported ventricular a rrhythmia. PHYSICAL EXAMINATION: VITAL SIGNS: Blood pressure 126/66, heart rate 63, temperature 97.8, respirations 20. HEENT: Normocephalic. NECK: No JVD. CHEST: Clear. HEART: S1, S2 regular. EXTREMITIES: No edema. ASSESSMENT: 1. Persistent dizziness. 2. Small foci of encephalomalacia at the right parietal and right cerebellum suggestive of old lacun ar infarcts. 3. Hypertension. 4. Uncontrolled diabetes mellitus. 5. Coronary artery disease and history of coronary intervention in the remote past. RECOMMENDATIONS: Continue aspirin 81 mg once a day, Coreg at 25 mg once a day, Crestor at 40 mg once a day, glipizide 5 mg once a day, Lasix 20 mg p.o. once a day, Norvasc at 10 mg once a day. The pat ient will be transferred to subacute rehab at facility. I agree with this decision. At this t solomon, no further cardiac workup is indicated. Kaden Montoya MD cc: [id number] TT: 08/01/2016 14:18:57 Confirmation # [id number] Dictation # [id number] en
[2016-08-01 15:44] VITALS: BP 146/75; RESP 18; TEMP 98; O2SAT 98
--- NOTE | 2016-08-01 17:44 | CP.PCM.PN ---
Subjective - Date & Time of Evaluation Date of Evaluation: 08/01/16 Time of Evaluation: 10:30 - Subjective Subjective: Pt seen today, c/o dizziness upon standing up and ambulation, denies any chest pain, sob, palpitations, headache, N/V/ No overnight events recorded on monitor Objective - Vital Signs/Intake and Output Vital Signs (last 24 hours): Temp Pulse Resp BP Pulse Ox 98 F 66 18 146/75 98 08/01/16 15:43 08/01/16 15:43 08/01/16 15:43 08/01/16 15:43 08/01/16 15:43 Intake and Output: 08/01/16 08/01/16 06:59 18:59 Intake Total 240 480 Balance 240 480 - Medications Medications: Current Medications Acetaminophen (Tylenol 325mg Tab) 650 mg PO Q6 PRN PRN Reason: Headache Last Admin: 07/29/16 02:42 Dose: 650 mg Amlodipine Besylate (Norvasc) 10 mg PO DAILY [facility] Last Admin: 08/01/16 09:59 Dose: 10 mg Aspirin (Aspirin Chewable) 81 mg PO DAILY [facility] Last Admin: 08/01/16 10:00 Dose: 81 mg Carvedilol (Coreg) 25 mg PO BID [facility] Last Admin: 08/01/16 09:59 Dose: 25 mg Donepezil HCl (Aricept) 5 mg PO HS [facility] Furosemide (Lasix) 20 mg PO DAILY [facility] Last Admin: 08/01/16 09:59 Dose: 20 mg Glipizide (Glucotrol) 5 mg PO ACB [facility] Last Admin: 08/01/16 08:31 Dose: 5 mg Insulin Aspart (Novolog) 0 unit SC [facility] PRN Reason: Protocol Last Admin: 08/01/16 12:07 Dose: 4 unit Insulin Glargine (Lantus) 40 unit SC [facility] Last Admin: 07/31/16 22:05 Dose: 40 unit Meclizine HCl (Antivert) 25 mg PO TID [facility] Last Admin: 08/01/16 13:21 Dose: 25 mg Rosuvastatin Calcium (Crestor) 40 mg PO HS [facility] Last Admin: 07/31/16 22:04 Dose: 40 mg Senna/Docusate Sodium (Senokot S 50 Mg-8.6 Mg) 1 tab PO BID [facility] Last Admin: 08/01/16 10:00 Dose: 1 tab Sertraline HCl (Zoloft) 25 mg PO DAILY [facility] Last Admin: 08/01/16 10:00 Dose: 25 mg Topiramate (Topamax) 50 mg PO BID [facility] Last Admin: 08/01/16 10:00 Dose: 50 mg - Labs Labs: 07/31/16 08:37 07/31/16 08:37 Assessment and Plan - Assessment and Plan (Free Text) Assessment: A/P 66 yr old female admitted for dizziness/ syncope EEG -negative echo - WNL MRI -No evidence of acute or subacute infarct. No evidence of acute pathology in the brain. Small foci of encephalomalacia at the right parietal and right cerebellum suggestive of old lacunar infarcts. Largest focus seen at the right cerebellum. seen by Dr. Tapia today, Pt refereed for rehab for physical therapy and accepted , and pt in agreement Discharge plan discussed with Dr. Tapia, [facility] follow the p[facility]int at [place] Discharge plan discussed with patient, who understnads an dagrees with jeannine
--- NOTE | 2016-08-01 20:36 | PN ---
DATE: 08/01/2016 SUBJECTIVE: Today, the patient is alert, awake and oriented, but sometimes forgetful, but also the p atient complaining of dizziness when standing and walking. PHYSICAL EXAMINATION: VITAL SIGNS: The patient has also a blood pressure of 146/75, pulse 66, respirations 18, temperature 98 degrees Fahrenheit. HEENT: Head is normocephalic. NECK: Supple. No JVD. LUNGS: Clear. HEART: Regular rate and rhythm. ABDOMEN: Soft, nontender. No palpable mass. EXTREMITIES: There is no edema. NEUROLOGIC: The patient has unsteady gait and some difficulty to walk straight. LABORATORY DATA: So patient had some blood tests done, yesterday. The WBC is 5.8, hemoglobin 12.2, hematocrit 35.9, platelets is 217. Chemistry: Glucose ___ and 95. PLAN: Cardiology note appreciated and ____ note of Dr. Hogan is also appreciated. We will consider giving patient some antidiabetic, which I agree with that. The patient now is put on Topamax and at this point, the patient will need physical therapy and will send patient today for physical therapy. Faisal Tapia MD cc: [id number] TT: 08/01/2016 20:35:55 Confirmation # [id number] Dictation # [id number] cecy
--- NOTE | 2016-08-01 23:23 | CP.PCM.PN ---
Subjective - Date & Time of Evaluation Date of Evaluation: 08/01/16 Time of Evaluation: 18:00 - Subjective Subjective: Patient is feeling dizziness,, light headedness on standing from sitting position. 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 She is discharged to a snf Rehab facility at [facility] for further management. She is fully awake alert oriented with a sharp memory. Objective - Vital Signs/Intake and Output Vital Signs (last 24 hours): Temp Pulse Resp BP Pulse Ox 98 F 66 18 146/75 98 08/01/16 15:43 08/01/16 15:43 08/01/16 15:43 08/01/16 18:20 08/01/16 15:43 Intake and Output: 08/01/16 08/02/16 18:59 06:59 Intake Total 480 Balance 480 - Labs Labs: 07/31/16 08:37 07/31/16 08:37 Assessment and Plan (1) Dizziness Status: Acute (2) Near syncope Status: Acute (3) Renal insufficiency Status: Acute (4) Seizures Status: Acute (5) Seizures Status: Acute
[2016-08-02 03:07] VITALS: PULSE 64
--- NOTE | 2016-08-08 10:45 | DS ---
The patient is a 66-year-old female with history of hypertension, diabetes and depression. The patie nt came to my office complaining of dizziness, shortness of breath with exertion. Patient also stated that ____ apparently a week ago the patient was found is in her car sleeping and the patient does no t remember of the incident. The patient came to my office and I advised the patient to go to the [facility] for evaluation, so the patient refused to do so before. The patient had a consult with Anay Montoya, cardiology, and Dr. Hogan, neurologist. The patient had tests done including echocardi ogram. The echocardiogram was done and the left atrium was mildly dilated. The right atrium was als o mildly dilated. The patient . The patient also had an MRI of the brain, which was unrevealin g and also an EEG was done. awake and drowsy, echocardiogram. Also, patient had as I mentione d an MRI of the brain that was done that has shown encephalomalacia at the cerebellum and measures 1. 5 x 0.8 cm. 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 However, the patient was dizzy and was unable to w alk straight and therefore the patient was not able to . The patient was evaluated by the physi madina therapist and suggested to put the patient for physical rehab inpatient, so the patient was refer red to physical therapy upon discharge and will refer this patient also. Faisal Tapia MD cc: [id number] TT: 08/07/2016 20:52:20 mt 08/08/2016 09:44:44
== END 2016-08-01 19:50 | DRG 57 ==
LOC: C.ER 20:42 → C.5T 22:51 → OBSVTOIN 07-27 12:42 → C.6T 07-28 11:46
PROVIDERS: ADMIT Specialist; ATTEND Specialist
DX: I69.398 Other sequelae of cerebral infarction (principal); E11.22 Type 2 diabetes mellitus with diabetic chronic kidney disease; E11.42 Type 2 diabetes mellitus with diabetic polyneuropathy; G93.89 Other specified disorders of brain; R55 Syncope and collapse; R42 Dizziness and giddiness; E11.65 Type 2 diabetes mellitus with hyperglycemia; I27.2 Other secondary pulmonary hypertension; I12.9 Hypertensive chronic kidney disease with stage 1 through stage 4 chronic kidney disease, or unspecified chronic kidney disease; N18.9 Chronic kidney disease, unspecified; F32.9 Major depressive disorder, single episode, unspecified; I25.10 Atherosclerotic heart disease of native coronary artery without angina pectoris; R26.81 Unsteadiness on feet; R26.2 Difficulty in walking, not elsewhere classified; Z96.1 Presence of intraocular lens; Z91.81 History of falling; Z95.5 Presence of coronary angioplasty implant and graft; Z98.49 Cataract extraction status, unspecified eye; Z79.4 Long term (current) use of insulin